=== PATIENT | female | born 1940 | race Caucasian/White ===

== ENCOUNTER 2022-08-24 16:52 | Inpatient (IN) | payer MEDICARE, OTHER ==
[~2022-08-24] VITALS: Ht 162.6 cm; Wt 69.9 kg
[2022-08-24] MEDS ORDERED: DEXTROSE 50%-WATER 50 ML DISP.SYRIN ONE (17:00)
--- NOTE | 2022-08-24 17:00 | NUR ---
BIB HIV PREVENTION SPECIALIST FROM HOME. LOW BLD SUGAR AND FEVER. INITIAL BLD SUGAR BY PARAMEDICS 40. GAVE IM GLUCAGON. REPEAT ACCUCHECK AT ADMISSION IS 48. PT PUT ON MONITOR AND PULSE, DID RECTAL TEMP 100.1F, PUT ON GOWN. NURSING CARE DONE MADE MD AWAR OF THE BLD SUGAR. PT AWAKE ORIENTED WITH ON O2 AT 4L. STRETCHER BORNE AWAITING FOR MD ORDERS
--- NOTE | 2022-08-24 17:15 | NUR ---
IV INSERTED, BLD EXTRACTED AND SENT TO LAB
[2022-08-24] MEDS ORDERED: VANCOMYCIN 1 GM in IV D5W 250 ML IV ONE (17:30)
[2022-08-24] MEDS ORDERED: DEXTROSE 50%-WATER 50 ML DISP.SYRIN IVP ONE (17:30)
[2022-08-24] MEDS ORDERED: CEFEPIME 1 GM in IV D5W 50 ML IV ONE (17:30)
[2022-08-24] MEDS ORDERED: IV NS 0.9% 1,000 ML BAG IV ONE (17:30)
[2022-08-24 17:36] LABS: BASOPHILS % (AUTO) 0.2 % (0.0-2.0); EOSINOPHILS % (AUTO) 0.3 % (0.0-6.0); HEMATOCRIT 29 % (33-45); HEMOGLOBIN 9.3 g/dL (11.5-14.8); LYMPHOCYTES # (AUTO) 0.7 K/uL (0.8-4.8); LYMPHOCYTES % (AUTO) 9.9 % (20.0-44.0); MEAN CORPUSCULAR HGB CONC 33 g/dl (31.0-36.0); MEAN CORPUSCULAR VOLUME 84 fL (82-100); MONOCYTES # (AUTO) 0.4 K/uL (0.1-1.30); MONOCYTES % (AUTO) 6.2 % (2.0-12.0); NEUTROPHILS # (AUTO) 5.5 K/uL (1.8-8.9); NEUTROPHILS % (AUTO) 83.4 % (43.0-81.0); PLATELET COUNT (AUTO) 137 K/uL (150-450); RED BLOOD CELL COUNT(AUTO) 3.42 MIL/uL (4.0-5.2); WHITE BLOOD COUNT (AUTO) 6.6 K/uL (4.3-11.0)
--- NOTE | 2022-08-24 17:40 | NUR ---
URINE SAMPLE SENT TO LAB
[2022-08-24 17:46] LABS: CALCIUM, SERUM 8.6 mg/dL (8.5-10.1); CARBON DIOXIDE 23 mmol/L (21-32); CHLORIDE 103 mmol/L (98-107); CREATININE 2.5 mg/dL (0.6-1.3); GLUCOSE 53 mg/dL (74-106); POTASSIUM 4.4 mmol/L (3.5-5.1); SODIUM SERUM 138 mmol/L (136-145); UREA NITROGEN, BLOOD 47 mg/dL (7-18)
--- NOTE | 2022-08-24 17:55 | NUR ---
RADHA Wright MD MADE AWARE
[2022-08-24 17:59] LABS: ALANINE AMINOTRANSFERASE 19 U/L (12-78); ALBUMIN 3.3 g/dL (3.4-5.0); ALKALINE PHOSPHATASE 141 U/L (46-116); ASPARTATE AMINOTRANSFERASE 37 U/L (15-37); BILIRUBIN,DIRECT 0.3 mg/dL (0.0-0.2); BILIRUBIN,TOTAL 0.5 mg/dL (0.2-1.0); TOTAL PROTEIN, SERUM 8.2 g/dL (6.4-8.2)
[2022-08-24] MEDS ORDERED: IPRATROPIUM NEB FS 0.5 MG/2.5 ML AMPUL.NEB NEB ONE (18:00)
[2022-08-24] MEDS ORDERED: ACETAMINOPHEN ES 500 MG TABLET PO ONE (18:00)
[2022-08-24] MEDS ORDERED: ALBUTEROL FS 2.5 MG/3 ML VIAL.NEB NEB ONE (18:00)
[2022-08-24] MEDS ORDERED: SACU1TAB PO (18:25)
[2022-08-24] MEDS ORDERED: MELA3CAP2 PO (18:25)
[2022-08-24] MEDS ORDERED: POLY17PO4 PO (18:25)
[2022-08-24] MEDS ORDERED: HYDR100T27 PO (18:25)
[2022-08-24] MEDS ORDERED: LEVO150T8 PO (18:25)
[2022-08-24] MEDS ORDERED: FERR325T23 PO (18:25)
[2022-08-24] MEDS ORDERED: FLUT16SP16 (18:25)
[2022-08-24] MEDS ORDERED: NIFE-34 PO (18:25)
[2022-08-24] MEDS ORDERED: BENZ-13 PO (18:25)
[2022-08-24] MEDS ORDERED: IPRA3AMP23 IH (18:25)
[2022-08-24] MEDS ORDERED: FOLI1CAP7 PO (18:25)
[2022-08-24] MEDS ORDERED: PANT40TA2 PO (18:25)
[2022-08-24] MEDS ORDERED: CLON0.3P TD (18:25)
[2022-08-24] MEDS ORDERED: EPOE3000 SQ (18:25)
[2022-08-24] MEDS ORDERED: ATOR10TA PO (18:25)
[2022-08-24] MEDS ORDERED: ASPI-1169 PO (18:25)
[2022-08-24] MEDS ORDERED: MORPHINE SULFATE INJ 2 MG/ML DISP.SYRIN IV ONE (18:30)
--- NOTE | 2022-08-24 18:39 | NUR ---
MOVE SHEET SUBMITTED.
[2022-08-24] MEDS ORDERED: MORPHINE SULFATE INJ 4 MG/ML DISP.SYRIN ONE (18:40)
--- NOTE | 2022-08-24 19:21 | NUR ---
SWAB FOR COVID19 AND RAPID INFLUENZA SENT TO LAB
[2022-08-24 19:34] LABS: BILIRUBIN,URINE NEGATIVE (NEGATIVE); COLOR,URINE YELLOW (YELLOW); LEUKOCYTE ESTERASE ,URINE NEGATIVE (NEGATIVE); NITRITE, URINE NEGATIVE (NEGATIVE); PH,URINE 5.5 (5.0-8.0); PROTEIN,URINE 1+ mg/dl (NEGATIVE); UGLUCOSE NEGATIVE (NEGATIVE); UROBILINOGEN,URINE 0.2 EU/dL (0.2)
--- NOTE | 2022-08-24 21:10 | NUR ---
RECHECKED TEMP. 101.4 PO ICE COLD PACK APPLIED TO BOTH ARMPIT.
--- NOTE | 2022-08-24 21:25 | NUR ---
REPORT GIVEN TO ASHLYN VIRAMONTES ROOM 328-2 FOR FLO
[2022-08-24] MEDS ORDERED: ONDANSETRON HCL/PF 4 MG/2 ML VIAL IVP PRN (21:30)
[2022-08-24] MEDS ORDERED: DEXTROSE 50%-WATER 50 ML DISP.SYRIN IV PRN (21:30)
[2022-08-24] MEDS ORDERED: ZOLPIDEM TARTRATE 5 MG TABLET PO PRN (21:30)
[2022-08-24] MEDS ORDERED: BENZONATATE 100 MG CAPSULE PO PRN (21:30)
[2022-08-24] MEDS ORDERED: IPRATROPIUM NEB FS 0.5 MG/2.5 ML AMPUL.NEB NEB PRN (21:30)
[2022-08-24] MEDS ORDERED: Z GUARD REMEDY 4 OZ OINT TP PRN (21:30)
[2022-08-24] MEDS ORDERED: MAG HYDROX/AL HYDROX/SIMETH 30 ML UDC PO PRN (21:30)
[2022-08-24] MEDS ORDERED: MAGNESIUM HYDROXIDE 30 ML UDC PO PRN (21:30)
[2022-08-24] MEDS ORDERED: LEVALBUTEROL HCL NEB 1.25 MG/0.5 ML VIAL.NEB NEB PRN (21:30)
--- NOTE | 2022-08-24 21:35 | NUR ---
SPLICER MACHINE OPERATOR ADMITTING NOTES RECEIVED PATIENT AWAKE A/OX3. ANGOLAN SPEAKING BUT UNDERSTAND WORDS IN BARBADIAN. PATIENT ON NASAL CANULA 2LPM. NO SOB, BREATHING EVENLY AND NON LABORED. NO IN ANY DISTRESS NOTED. IV ACCESS ON LEFT ARM #20 SALINE LOCK NOTED TO BE FLUSHING WELL AND INTACT. PATIENT DENIES ANY PAIN AT THIS MOMENT. PATIENT IS FEBRILE WITH TEMP OF 101.2. COOLING MEASURE IS DONE. MEDICATION IS GIVEN ORDERED. PATIENT ON TELE MONITOR READING OF SINUS RHYTHM 93BPM. PERFORMED SKIN ASSESSMENT AND BODY CHECK; SKIN NOTED TO BE INTACT NO REDNESS OR SKIN LESIONS NOTED. NO PRESENCE OF EDEMA. PATIENT IS ORIENTED TO THE ROOM AND HOW TO USE THE CALL LIGHT WHEN HELP IS NEEDED. ALL BELONGINGS ARE ACCOUNTED FOR. SAFETY MEASURE IN PLACED; BED LOCKED AND IN LOWEST POSITION, SIDE RAILS UP X2, HOB ELEVATED, CALL LIGHT AND BEDSIDE TABLE WITHIN PATIENT REACH.
[2022-08-24 21:40] LABS: BACTERIA,URINE None seen /HPF (None Seen); RBC,URINE 0-2 /HPF (0-2); URINE AMORPHOUS URATE Moderate /HPF (None Seen); WBC,URINE 0-2 /HPF (0-3)
[2022-08-24] MEDS ORDERED: MELATONIN 3 MG TABLET PO SCH (22:00)
[2022-08-24 22:30] VITALS: BP 157/66
[2022-08-24] MEDS: methylPREDNISolone SOD SUCC 125 MG/2ML VIAL IV SCH (22:54)
[2022-08-24] MEDS: ATORVASTATIN 10 MG TABLET PO SCH (22:54)
[2022-08-24] MEDS: BLOOD SUGAR DIAGNOSTIC 1 EACH STRIP IN SCH (23:18)
--- NOTE | 2022-08-24 23:18 | NUR ---
RN NOTES CHECKED PATIENT BLOOD SUGAR RESULT IS 34. CHARGE NURSE IS INFORMED. D5 DRIP IS GIVEN. WILL CONTINUE TO MONITOR.
[2022-08-25] VITALS (9 sets, daily range): BP systolic 121–171; BP diastolic 49–67
[2022-08-25] MEDS ORDERED: Medication Not On Formulary EA (Ipratropium/Albuterol Sulfate (Duoneb 2.5-0.5 Mg/3 Ml So IH SCH
--- NOTE | 2022-08-25 00:17 | NUR ---
RN NOTES PATIENT IS FEBRILE 101.1 COOLING MEASURE IS DONE. TYLENOL IS GIVEN ORDERED. WILL CONTINUE TO MONITOR.
--- NOTE | 2022-08-25 00:20 | NUR ---
RN NOTES TROP RESULT FROM [address] MARISCAL IS INFORMED. NO NEW ORDER GIVEN.
--- NOTE | 2022-08-25 00:26 | NUR ---
RN NOTES REASSESSED PATIENT. BLOOD SUGAR IS 93. GIVEN ONE ORANGE JUICE TO HELP ELEVATE BLOOD SUGAR.
--- NOTE | 2022-08-25 00:40 | NUR ---
RN NOTE REASSESSED PATIENT. FEVER RESOLVED. TEMP. 98.2
[2022-08-25] MEDS: ALBUTEROL FS 2.5 MG/0.5 ML VIAL.NEB NEB SCH ×5 (01:25→19:54)
[2022-08-25] MEDS: IPRATROPIUM NEB FS 0.5 MG/2.5 ML AMPUL.NEB IH SCH ×5 (01:25→19:54)
[2022-08-25] MEDS: methylPREDNISolone SOD SUCC 125 MG/2ML VIAL IV SCH ×3 (04:44→20:18)
[2022-08-25 06:26] LABS: HEMATOCRIT 25 % (33-45); HEMOGLOBIN 7.9 g/dL (11.5-14.8); LYMPHOCYTES # (AUTO) 0.2 K/uL (0.8-4.8); LYMPHOCYTES % (AUTO) 4.1 % (20.0-44.0); MEAN CORPUSCULAR HGB CONC 32 g/dl (31.0-36.0); MEAN CORPUSCULAR VOLUME 84 fL (82-100); MONOCYTES # (AUTO) 0.1 K/uL (0.1-1.30); MONOCYTES % (AUTO) 2.3 % (2.0-12.0); NEUTROPHILS # (AUTO) 4.7 K/uL (1.8-8.9); NEUTROPHILS % (AUTO) 93.6 % (43.0-81.0); PLATELET COUNT (AUTO) 121 K/uL (150-450); RED BLOOD CELL COUNT(AUTO) 2.94 MIL/uL (4.0-5.2)
--- NOTE | 2022-08-25 06:35 | NUR ---
BURRER HAND CLOSING NOTES PATIENT IN BED AWAKE A/OX4. AUSTRIAN SPEAKING BUT UNDERSTAND WORDS IN [place]VI[place]. ABLE TO MAKE NEEDS KNOWN. PATIENT ON NASAL CANULA 2LPM. NO SOB, BREATHING EVENLY AND NON LABORED. NO IN ANY DISTRESS NOTED. IV ACCESS ON LEFT ARM #20 SALINE LOCK NOTED TO BE FLUSHING WELL AND INTACT. PATIENT DENIES ANY PAIN AT THIS MOMENT. PATIENT ON TELE MONITOR READING OF SINUS RHYTHM WITH FIRST DEGREE AVB. LAB CALLED FOR TROPONIN THREAD FROM [id number] DR INDUSTRIAL HYGIENIST MADE AWARE, NOT NEW ORDERS GIVEN. SAFETY MEASURE IN PLACED; BED LOCKED AND IN LOWEST POSITION, SIDE RAILS UP X2, HOB ELEVATED, CALL LIGHT AND BEDSIDE TABLE WITHIN PATIENT REACH. WILL ENDORSE TO NEXT SHIFT NURSE FOR CONTINUITY OF CARE.
[2022-08-25 07:24] LABS: CARBON DIOXIDE 19 mmol/L (21-32); CHLORIDE 106 mmol/L (98-107); GLUCOSE 234 mg/dL (74-106); POTASSIUM 5.2 mmol/L (3.5-5.1); SODIUM SERUM 139 mmol/L (136-145); UREA NITROGEN, BLOOD 41 mg/dL (7-18)
[2022-08-25 07:25] LABS: ALANINE AMINOTRANSFERASE 18 U/L (12-78); ALBUMIN 2.6 g/dL (3.4-5.0); ALKALINE PHOSPHATASE 115 U/L (46-116); ASPARTATE AMINOTRANSFERASE 34 U/L (15-37); BILIRUBIN,TOTAL 0.5 mg/dL (0.2-1.0); CREATININE 1.9 mg/dL (0.6-1.3); MAGNESIUM 2.5 mg/dL (1.8-2.4); PHOSPHORUS 4.8 mg/dL (2.5-4.9); TOTAL PROTEIN, SERUM 6.6 g/dL (6.4-8.2)
[2022-08-25] MEDS: BLOOD SUGAR DIAGNOSTIC 1 EACH STRIP IN SCH ×4 (07:28→21:49)
[2022-08-25] MEDS: INSULIN REGULAR, HUMAN 100 UNIT/ML 3 ML VIAL SQ PRN ×4 (07:31→22:02)
--- NOTE | 2022-08-25 07:36 | NUR ---
RN NOTES BLOOD SUGAR CHECKED 262. 6 UNITS OF INSULIN GIVEN.
[2022-08-25] MEDS: LEVOTHYROXINE SODIUM 75 MCG TABLET PO SCH (07:43)
[2022-08-25] MEDS: PANTOPRAZOLE 40 MG TABLET.DR PO SCH (07:43)
--- NOTE | 2022-08-25 07:46 | NUR ---
CANDY PACKER OPENING NOTES RECEIVED PATIENT AWAKE IN BED A/OX4. HAITIAN SPEAKING BUT UNDERSTAND WORDS IN [place]. ABLE TO MAKE NEEDS KNOWN. PATIENT ON NASAL CANULA 2LPM. NO SOB, BREATHING EVENLY AND NON LABORED. NO SIGNS OF ANY DISTRESS NOTED. IV ACCESS ON LEFT AC #20 SALINE LOCK NOTED, FLUSHING WELL AND INTACT. PATIENT DENIES ANY PAIN AT THIS MOMENT. PATIENT ON TELE MONITOR READING OF SINUS RHYTHM WITH FIRST DEGREE AVB. SAFETY MEASURE IN PLACED; BED LOCKED AND IN LOWEST POSITION, SIDE RAILS UP X2, HOB ELEVATED, CALL LIGHT AND BEDSIDE TABLE WITHIN PATIENT REACH. WILL CONTINUE TO MONITOR PATIENT.
[2022-08-25] MEDS: FERROUS SULFATE (325 MG) 325 MG/TAB TABLET PO SCH (08:48)
[2022-08-25] MEDS: POLYETHYLENE GLYCOL 3350 17 GM POWD.PACK PO SCH (08:48)
[2022-08-25] MEDS: ASPIRIN 81 MG TAB.CHEW PO SCH (08:48)
[2022-08-25] MEDS: VIT B CMPLX 3/FA/VIT C/BIOTIN 1 TAB TABLET PO SCH (08:48)
[2022-08-25] MEDS: FLUTICASONE PROPIONATE 16 GM BOTTLE NS SCH (08:53)
[2022-08-25] MEDS: SACUBITRIL/VALSARTAN 1 EACH TABLET PO SCH ×2 (08:54→17:00)
[2022-08-25] MEDS: NIFEDIPINE XL 60 MG TAB.ER.24 PO SCH (08:55)
[2022-08-25] MEDS ORDERED: SODIUM POLYSTYRENE SULF. PWD 15 GM UDC PO ONE (10:00)
[2022-08-25] MEDS ORDERED: SODIUM POLYSTYRENE SULFONATE 15 G/60 ML BOTTLE PO ONE (11:00)
--- NOTE | 2022-08-25 11:53 | NUR ---
RN NOTES PT WITH HIGH LEVEL POTASSIUM 5.2 THIS MORNING, ADMINISTERED KAYEXALATE 15GMS PO ORDERED.
--- NOTE | 2022-08-25 12:25 | NUR ---
RN NOTES PATIENT BLOOD SUGAR WAS 427 AND GAVE 10 UNITS OF INSULIN. RECHECKED BLOOD SUGAR AT 1146 AND IT'S 436. INFORMED DR. OGDEN AND HE SAID TO CONTINUE USE OF SLIDING SCALE.
[2022-08-25] MEDS: CEFEPIME 1 GM in IV D5W 50 ML IV SCH (17:13)
[2022-08-25] MEDS: INSULIN GLARGINE, 100 UNIT/ML CARTRIDGE SQ SCH ×2 (18:06→21:56)
--- NOTE | 2022-08-25 18:10 | NUR ---
RN NOTES PATIENT WITH ACCU-CHECK OF 429 MG/DL, 10 UNITS OF REGULAR INSULIN GIVEN ORDERED. RECHECKED @ 0534 AND PATIENT HAS AN ACCU-CHECK OF 443 MG/DL. NOTIFIED DR. OGDEN WITH ORDER TO ADMINISTER LANTUS 5 UNITS NOW AND DAILY AT . ORDER CARRIED OUT.
--- NOTE | 2022-08-25 18:33 | NUR ---
ASSISTANT CUSTOMER SERVICE MANAGER CLOSING PATIENT IN BED AWAKE AND WATCHING TV, A/OX4. AMERICAN SPEAKING BUT UNDERSTAND WORDS IN [place]EL[place]. ABLE TO MAKE NEEDS KNOWN. PATIENT ON NASAL CANULA 2LPM. NO SOB, BREATHING EVENLY AND NON LABORED. NO ANY SIGNS OF DISTRESS. IV ACCESS ON LEFT AC #20 SALINE LOCK, FLUSHING WELL, PATENT AND INTACT. PATIENT DENIES ANY PAIN AT THIS MOMENT. PATIENT ON TELE MONITOR READING OF SINUS RHYTHM WITH FIRST DEGREE AVB, HR 88. SAFETY MEASURE IN PLACED; BED LOCKED AND IN LOWEST POSITION, SIDE RAILS UP X2, HOB ELEVATED, CALL LIGHT AND BEDSIDE TABLE WITHIN PATIENT REACH. WILL ENDORSE TO THE INTELLIGENCE APPLICATIONS NURSE FOR CONTINUITY OF CARE.
--- NOTE | 2022-08-25 19:00 | NUR ---
RN OPENING NOTE RECEIVED PT. ASLEEP IN BED. PT IS A/OX4, ITALIAN SPEAKING BUT CAN SPEAK AND UNDERSTAND SIMPLE QATARI. PT IS IN 2LPM O2 VIA NASAL CANNULA, TOLERATING WELL, BREATHING AND UNLABORED @ THIS TIME. PT IV PRESENT ON LEFT AC @20G RUNNING NS @ 5MLS/HR, PATENT, INTACT AND FLUSHES WELL W/ NO S&SX OF INFILTRATION @ SITE NOTED. PT CAN INDEPENDENTLY WALK TO THE BATHROOM WITH ASSISTANCE. SAFETY MEASURES IS IN PLACE. BED PLACED AT ITS LOWEST AND LOCKED POSITION. SIDE RAILS UP X 2. BEDSIDE TABLE AND CALL LIGHT IS EASY REACH. BED ALARM IS ON. WILL CONTINUE TO MONITOR PT ACCORDINGLY.
[2022-08-25] MEDS: ATORVASTATIN 10 MG TABLET PO SCH (21:38)
[2022-08-26] MEDS: IPRATROPIUM NEB FS 0.5 MG/2.5 ML AMPUL.NEB IH SCH ×4 (01:47→20:22)
[2022-08-26] MEDS: ALBUTEROL FS 2.5 MG/0.5 ML VIAL.NEB NEB SCH ×4 (01:47→20:22)
[2022-08-26] MEDS: methylPREDNISolone SOD SUCC 125 MG/2ML VIAL IV SCH (04:15)
[2022-08-26 06:14] LABS: BILIRUBIN,URINE NEGATIVE (NEGATIVE); COLOR,URINE YELLOW (YELLOW); LEUKOCYTE ESTERASE ,URINE NEGATIVE (NEGATIVE); NITRITE, URINE NEGATIVE (NEGATIVE); PROTEIN,URINE 2+ mg/dl (NEGATIVE); UGLUCOSE 2+ mg/dL (NEGATIVE); UROBILINOGEN,URINE 0.2 EU/dL (0.2)
[2022-08-26] MEDS: INSULIN REGULAR, HUMAN 100 UNIT/ML 3 ML VIAL SQ PRN ×4 (06:21→22:24)
[2022-08-26] MEDS: BLOOD SUGAR DIAGNOSTIC 1 EACH STRIP IN SCH ×4 (06:21→22:27)
[2022-08-26 06:24] LABS: HEMATOCRIT 26 % (33-45); HEMOGLOBIN 8.5 g/dL (11.5-14.8); LYMPHOCYTES # (AUTO) 0.1 K/uL (0.8-4.8); LYMPHOCYTES % (AUTO) 1.3 % (20.0-44.0); MEAN CORPUSCULAR HGB CONC 33 g/dl (31.0-36.0); MEAN CORPUSCULAR VOLUME 83 fL (82-100); MONOCYTES # (AUTO) 0.3 K/uL (0.1-1.30); NEUTROPHILS # (AUTO) 7.2 K/uL (1.8-8.9); NEUTROPHILS % (AUTO) 94.7 % (43.0-81.0); PLATELET COUNT (AUTO) 149 K/uL (150-450); RED BLOOD CELL COUNT(AUTO) 3.14 MIL/uL (4.0-5.2); WHITE BLOOD COUNT (AUTO) 7.6 K/uL (4.3-11.0)
[2022-08-26 06:33] LABS: RBC,URINE 0-2 /HPF (0-2); WBC,URINE 0-2 /HPF (0-3)
[2022-08-26 06:34] LABS: BACTERIA,URINE Rare /HPF (None Seen); SQUAMOUS EPITHELIAL CELL,UR Few /HPF (None Seen)
--- NOTE | 2022-08-26 06:38 | NUR ---
RN CLOSING NOTE PT IS AWAKE AND RESTING COMFORTABLY IN BED. PT IS A/O X 4, RESPONSIVE AND FOLLOWS VERBAL COMMAND. PT IS IN 2LPM O2 VIA NASALA CANNULA, W/ NO S&SX OF RESPIRATORY DISTRESS NOTED @ THIS TIME. PT IV PRESENT ON LEFT AC #20G SALINE LOCK, INTACT AND FLUSHES WELL WITH NO S &SX OF INFILTRATION. PT IS ON TELE MONITOR W/ CURRENT READING OF SINUS TACHYCARDIA HR 121 BPM. PT INDEPENDENTLY WALKS IN THE BATHROOM W/ STANDBY ASSIST. ADMINISTERED MEDICATION ACCORDINGLY PER MD'S ORDER. VITAL SIGNS TAKEN AND DOCUMENTED. ALL NEEDS ATTENDED. SAFETY MEASURES IS IN PLACE. BED AT ITS LOWEST AND LOCKED POSITION. SIDE RAILS UP X 2. BEDSIDE TABLE AND CALL LIGHT IS EASY REACH. BED ALARM IS ON. WILL ENDORSE TO THE NEXT SHIFT FOR CONTINUITY OF CARE.
[2022-08-26 06:45] LABS: CALCIUM, SERUM 8.4 mg/dL (8.5-10.1); CARBON DIOXIDE 22 mmol/L (21-32); CHLORIDE 105 mmol/L (98-107); CREATININE 2.1 mg/dL (0.6-1.3); GLUCOSE 324 mg/dL (74-106); MAGNESIUM 2.6 mg/dL (1.8-2.4); PHOSPHORUS 4.1 mg/dL (2.5-4.9); SODIUM SERUM 141 mmol/L (136-145); UREA NITROGEN, BLOOD 60 mg/dL (7-18)
[2022-08-26] MEDS: LEVOTHYROXINE SODIUM 75 MCG TABLET PO SCH (07:46)
[2022-08-26] MEDS: PANTOPRAZOLE 40 MG TABLET.DR PO SCH (07:46)
--- NOTE | 2022-08-26 07:48 | NUR ---
BEAMING INSPECTOR OPENING NOTES RECEIVED PATIENT AWAKE IN BED, A/OX4. NEPALI SPEAKING BUT UNDERSTAND WORDS IN [place]. ABLE TO MAKE NEEDS KNOWN. PATIENT ON NASAL CANULA 2LPM. NO SOB, BREATHING EVENLY AND NON LABORED. NO SIGNS OF ANY DISTRESS NOTED. IV ACCESS ON LEFT AC #20 SALINE LOCK NOTED, FLUSHING WELL AND INTACT. NO S & SX OF INFILTRATION. PATIENT DENIES ANY PAIN AT THIS MOMENT. PATIENT ON TELE MONITOR READING OF SINUS RHYTHM HR:93. SAFETY MEASURE IN PLACED; BED LOCKED AND IN LOWEST POSITION, SIDE RAILS UP X2, HOB ELEVATED, CALL LIGHT AND BEDSIDE TABLE WITHIN PATIENT REACH. WILL CONTINUE TO MONITOR PATIENT.
[2022-08-26 08:00] VITALS: BP 148/67
[2022-08-26] MEDS: FERROUS SULFATE (325 MG) 325 MG/TAB TABLET PO SCH (08:18)
[2022-08-26] MEDS: VIT B CMPLX 3/FA/VIT C/BIOTIN 1 TAB TABLET PO SCH (08:18)
[2022-08-26] MEDS: POLYETHYLENE GLYCOL 3350 17 GM POWD.PACK PO SCH (08:18)
[2022-08-26] MEDS: ASPIRIN 81 MG TAB.CHEW PO SCH (08:18)
[2022-08-26] MEDS: SACUBITRIL/VALSARTAN 1 EACH TABLET PO SCH ×2 (08:22→16:16)
[2022-08-26] MEDS: FLUTICASONE PROPIONATE 16 GM BOTTLE NS SCH (08:24)
[2022-08-26] MEDS: NIFEDIPINE XL 60 MG TAB.ER.24 PO SCH (08:24)
[2022-08-26] MEDS ORDERED: INSULIN GLARGINE, 100 UNIT/ML CARTRIDGE SQ SCH (08:30)
[2022-08-26 12:00] VITALS: BP 147/72
[2022-08-26 16:00] VITALS: BP 158/68
--- NOTE | 2022-08-26 16:58 | NUR ---
RECEIVED PATIENT ON 2LNC SATURATIONS AT 98%. ORDERED HHN TXS TAMI WELL WITH NO ADVERSE REACTION NOTED. NO SOB NOTED.
[2022-08-26] MEDS: ACETAMINOPHEN 325 MG TABLET PO PRN (17:31)
--- NOTE | 2022-08-26 17:35 | NUR ---
RN NOTES PATIENT COMPLAINED OF LOWER BACK PAIN AND ASKED FOR SOME MEDICINE. SHE RATE THE PAIN 3 OUT OF 10. TYLENOL 650MG GIVEN.
[2022-08-26] MEDS: CEFEPIME 1 GM in IV D5W 50 ML IV SCH (18:21)
--- NOTE | 2022-08-26 18:39 | NUR ---
COTTON FARMER CLOSING NOTES PATIENT IN BED AWAKE AND WATCHING TV, A/OX4. GREENLANDIC SPEAKING BUT UNDERSTAND WORDS IN [place]. ABLE TO MAKE NEEDS KNOWN. PATIENT ON NASAL CANULA 2LPM. BREATHING EVENLY AND NON LABORED. NO ANY SIGNS OF DISTRESS. IV ACCESS ON LEFT AC #20 SALINE LOCK, FLUSHING WELL, PATENT AND INTACT. PATIENT DENIES ANY PAIN AT THIS MOMENT. PATIENT ON TELE MONITOR READING OF SINUS RHYTHM, HR 88. SAFETY MEASURE IN PLACED; BED LOCKED AND IN LOWEST POSITION, SIDE RAILS UP X2, HOB ELEVATED, CALL LIGHT AND BEDSIDE TABLE WITHIN PATIENT REACH. WILL ENDORSE TO THE MANAGER DIVERSITY NURSE FOR CONTINUITY OF CARE.
--- NOTE | 2022-08-26 19:48 | NUR ---
MENTAL HEALTH UNIT LEAD PSYCHOLOGIST OPENING NOTES: RECEIVED PATIENT AWAEK IN BED, BED IN LOW POSITION CALL LIGHTS WITHIN REACH, NO COMPLAIN OF PAIN AND DISCOMFORT A THIS TIME, ON ROOM AIR SATURATING WELL, PATIENT IS A/O X4 OCCITAN SPEAKING ABLE TO MAKE NEEDS KNOWN, ON TELE MONITOR- [id number] , PATIENT IS AMBULATORY WITH ASSIST, IV LINE AT LAC#20 SL, PATIENT KEPT CLEAN AND DRY ALL NEEDS MET WILL CONTINUE TO MONITOR.
[2022-08-26 20:00] VITALS: BP 104/51
[2022-08-26] MEDS: IV NS 0.9% 1,000 ML IV SCH (21:39)
[2022-08-26] MEDS: ATORVASTATIN 10 MG TABLET PO SCH (22:00)
[2022-08-27] VITALS: BP 141/65
[2022-08-27] MEDS: ALBUTEROL FS 2.5 MG/0.5 ML VIAL.NEB NEB SCH ×4 (02:27→20:05)
[2022-08-27] MEDS: IPRATROPIUM NEB FS 0.5 MG/2.5 ML AMPUL.NEB IH SCH ×4 (02:27→20:06)
[2022-08-27 04:00] VITALS: BP 153/65
--- NOTE | 2022-08-27 06:50 | NUR ---
PRODUCTION TEAM ADVISOR CLOSING NOTES: PATIENT SLEEP IN BED COMFORTABLY, BED IN LOW POSITION CALL LIGHTS WITHIN REACH, NO COMPLAIN OF PAIN AND DISCOMFORT AT THIS TIME, ON O2 INHALATION AT 2LPM SATURATING WELL, PATIENT IS A/O X4 ABLE TO MAKE NEEDS KNOWN, AMBULATORY WITH ASSISTANCE, ON TELE [id number] I LINE AT LAC#20 WITH ONGOING 0.9NSS@50ML/HR INFUSING WELL, PATIENT KEPT CLEAN AND DRY ALL NEEDS MET ENDORSE TO INCOMING SHIFT
[2022-08-27] MEDS: INSULIN REGULAR, HUMAN 100 UNIT/ML 3 ML VIAL SQ PRN ×4 (06:56→21:44)
[2022-08-27] MEDS: BLOOD SUGAR DIAGNOSTIC 1 EACH STRIP IN SCH ×4 (06:56→21:32)
--- NOTE | 2022-08-27 07:00 | NUR ---
FUR FEEDER OPENING NOTES: RECEIVED PT IN BED AWAKE, A/OX4 TAIWANESE SPEAKING AND ABLE TO MAKE NEEDS KNOWN, NO SOB OR CARDIAC DISTRESS NOTED. ON O2 INHALATION AT 2LPM VIA NC AND TOLERATING WELL,ON TELE MONITOR WITH CURRENT READING OF SINUS RHYTHM @ 94BPM.IV ACCESS ON LAC GAUGE 20 PATENT, INTACT AND INFUSING NS 1L @ 50ML/HR. SAFETY MEASURES MAINTAINED: BED LOCKED AND IN LOWEST POSITION. SIDE RAILS UP X 2. CALL LIGHT IN EASY REACH FOR HELP. WILL MONITOR PT ACCORDINGLY.
[2022-08-27] MEDS: PANTOPRAZOLE 40 MG TABLET.DR PO SCH (07:32)
[2022-08-27] MEDS: LEVOTHYROXINE SODIUM 75 MCG TABLET PO SCH (07:33)
[2022-08-27 08:00] VITALS: BP 155/70
[2022-08-27] MEDS: ASPIRIN 81 MG TAB.CHEW PO SCH (08:35)
[2022-08-27] MEDS: NIFEDIPINE XL 60 MG TAB.ER.24 PO SCH (08:35)
[2022-08-27] MEDS: POLYETHYLENE GLYCOL 3350 17 GM POWD.PACK PO SCH (08:35)
[2022-08-27] MEDS: FERROUS SULFATE (325 MG) 325 MG/TAB TABLET PO SCH (08:35)
[2022-08-27] MEDS: FLUTICASONE PROPIONATE 16 GM BOTTLE NS SCH (08:35)
[2022-08-27] MEDS: VIT B CMPLX 3/FA/VIT C/BIOTIN 1 TAB TABLET PO SCH (08:35)
[2022-08-27] MEDS: SACUBITRIL/VALSARTAN 1 EACH TABLET PO SCH ×2 (08:36→16:38)
[2022-08-27 09:12] LABS: CALCIUM, SERUM 8.4 mg/dL (8.5-10.1); CARBON DIOXIDE 24 mmol/L (21-32); CHLORIDE 109 mmol/L (98-107); CREATININE 2.1 mg/dL (0.6-1.3); GLUCOSE 225 mg/dL (74-106); SODIUM SERUM 142 mmol/L (136-145); UREA NITROGEN, BLOOD 54 mg/dL (7-18)
[2022-08-27 09:18] LABS: ALANINE AMINOTRANSFERASE 22 U/L (12-78); ALBUMIN 2.5 g/dL (3.4-5.0); ALKALINE PHOSPHATASE 103 U/L (46-116); ASPARTATE AMINOTRANSFERASE 33 U/L (15-37); BILIRUBIN,TOTAL 0.5 mg/dL (0.2-1.0); TOTAL PROTEIN, SERUM 7.1 g/dL (6.4-8.2)
[2022-08-27 12:00] VITALS: BP 139/60
[2022-08-27 16:00] VITALS: BP 129/62
[2022-08-27] MEDS: CEFEPIME 1 GM in IV D5W 50 ML IV SCH (17:05)
[2022-08-27] MEDS: IV NS 0.9% 1,000 ML IV SCH (17:05)
--- NOTE | 2022-08-27 18:51 | NUR ---
BAGGAGE PORTER HEAD CLOSING NOTES: PT IN BED AWAKE, A/OX4 CANADIAN SPEAKING AND ABLE TO MAKE NEEDS KNOWN, NO SOB OR CARDIAC DISTRESS NOTED. ON O2 INHALATION AT 2LPM VIA NC AND TOLERATING WELL,ON TELE MONITOR WITH CURRENT READING OF SINUS RHYTHM @ 93BPM.IV ACCESS ON LAC GAUGE 20 PATENT, INTACT AND INFUSING NS 1L @ 50ML/HR. SAFETY MEASURES MAINTAINED: BED LOCKED AND IN LOWEST POSITION. SIDE RAILS UP X 2. CALL LIGHT IN EASY REACH FOR HELP. WILL ENDORSE TO SOLAR PV INSTALLER RN FOR CONTINUITY OF CARE.
--- NOTE | 2022-08-27 19:30 | NUR ---
ROLL UP OPERATOR OPENING NOTE PATIENT AWAKE IN BED, ALERT/ORIENTED X 4, PRIMARILY CHILEAN SPEAKING BUT ABLE TO MAKE BASIC NEEDS KNOWN. PATIENT ON 2 LPM OF O2 VIA NASAL CANNULA, NO S/S OF DISTRESS OR SOB NOTED, BREATHING EVEN AND UNLABORED. PATIENT ON EXTERNAL SOFA BACK UPHOLSTERER READING SINUS RHYTHM, HR: 92. IV ACCESS ON LAC #20G INTACT AND INFUSING NS @ 50 ML/HR. SAFETY MEASURES IN PLACE: CALL LIGHT WITHIN REACH, SIDE RAILS UP X 2, BED LOCKED IN LOWEST POSITION, HOB ELEVATED, BED ALARM ON. WILL CONTINUE TO MONITOR PATIENT
--- NOTE | 2022-08-27 19:49 | NUR ---
WET MIXER NOTE PATIENT COUGHING AND REQUESTING COUGH MEDICINE, TESSALON PERLE 100 MG PO GIVEN ORDERED. WILL CONTINUE TO MONITOR
[2022-08-27 20:00] VITALS: BP 151/68
[2022-08-27] MEDS: ACETAMINOPHEN 325 MG TABLET PO PRN (21:32)
--- NOTE | 2022-08-27 21:35 | NUR ---
MONOLOGIST NOTE PATIENT C/O RIB PAIN FROM COUGHING, TYLENOL 650 MG PO GIVEN ORDERED, WILL CONTINUE TO MONITOR
[2022-08-27] MEDS ORDERED: ATORVASTATIN 10 MG TABLET PO SCH (22:00)
[2022-08-28] VITALS: BP 131/59
[2022-08-28] MEDS: ALBUTEROL FS 2.5 MG/0.5 ML VIAL.NEB NEB SCH ×2 (01:35→07:30)
[2022-08-28] MEDS: IPRATROPIUM NEB FS 0.5 MG/2.5 ML AMPUL.NEB IH SCH ×2 (01:35→07:30)
[2022-08-28 04:00] VITALS: BP 143/66
[2022-08-28] MEDS: BLOOD SUGAR DIAGNOSTIC 1 EACH STRIP IN SCH ×2 (06:49→11:27)
[2022-08-28] MEDS: INSULIN REGULAR, HUMAN 100 UNIT/ML 3 ML VIAL SQ PRN ×2 (06:51→11:30)
--- NOTE | 2022-08-28 07:06 | NUR ---
LEAD ATG DEVELOPER CLOSING NOTE PATIENT AWAKE IN BED, ALERT/ORIENTED X 4, PRIMARILY PERUVIAN SPEAKING BUT ABLE TO MAKE BASIC NEEDS KNOWN. PATIENT ON 1 LPM OF O2 VIA NASAL CANNULA, NO S/S OF DISTRESS OR SOB NOTED, BREATHING EVEN AND UNLABORED, SPO2 92-95%. PATIENT ON EXTERNAL REPAIR TABLE OPERATOR READING SINUS RHYTHM, HR: 97. IV ACCESS ON LAC #20G INTACT AND INFUSING NS @ 50 ML/HR. MEDICATIONS GIVEN ORDERED, PT NEEDS MET THROUGHOUT SHIFT, ASSISTED PATIENT TO BSC 4 TIMES THIS SHIFT, NO BM. SAFETY MEASURES IN PLACE: CALL LIGHT WITHIN REACH, SIDE RAILS UP X 2, BED LOCKED IN LOWEST POSITION, HOB ELEVATED, BED ALARM ON. ENDORSED TO DAYSHIFT RN FOR CONTINUITY OF CARE
--- NOTE | 2022-08-28 07:15 | NUR ---
WINDOW COVERING SALES CONSULTANT OPENING NOTE RECEIVED PATIENT AWAKE IN BED, A/O X 4, CITIZEN OF [place] SPEAKING WITH BASIC AFGHAN AND ABLE TO MAKE NEEDS KNOWN. PATIENT ON 1 LPM OF O2 VIA NASAL CANNULA, NO S/S OF DISTRESS OR SOB NOTED, BREATHING EVEN AND UNLABORED, SPO2 92-95%. PATIENT ON EXTERNAL UKRAINIAN FOLK ARTS INSTRUCTOR READING SINUS RHYTHM, HR: 98. IV ACCESS ON LAC #20G INTACT AND INFUSING NS @ 50 ML/HR. SAFETY MEASURES IN PLACE: CALL LIGHT WITHIN REACH, SIDE RAILS UP X 2, BED LOCKED IN LOWEST POSITION, HOB ELEVATED, BED ALARM ON. WILL CONTINUE TO MONITOR THE PATIENT FOR FLO
[2022-08-28 07:39] LABS: ALANINE AMINOTRANSFERASE 35 U/L (12-78); ALBUMIN 2.3 g/dL (3.4-5.0); ALKALINE PHOSPHATASE 99 U/L (46-116); ASPARTATE AMINOTRANSFERASE 38 U/L (15-37); BILIRUBIN,TOTAL 0.5 mg/dL (0.2-1.0); CALCIUM, SERUM 8.1 mg/dL (8.5-10.1); CARBON DIOXIDE 23 mmol/L (21-32); CHLORIDE 110 mmol/L (98-107); GLUCOSE 173 mg/dL (74-106); POTASSIUM 3.7 mmol/L (3.5-5.1); SODIUM SERUM 143 mmol/L (136-145); TOTAL PROTEIN, SERUM 6.9 g/dL (6.4-8.2); UREA NITROGEN, BLOOD 47 mg/dL (7-18)
[2022-08-28 08:00] VITALS: BP 154/64
[2022-08-28] MEDS: FLUTICASONE PROPIONATE 16 GM BOTTLE NS SCH (08:24)
[2022-08-28] MEDS: PANTOPRAZOLE 40 MG TABLET.DR PO SCH (08:24)
[2022-08-28] MEDS: FERROUS SULFATE (325 MG) 325 MG/TAB TABLET PO SCH (08:24)
[2022-08-28] MEDS: LEVOTHYROXINE SODIUM 75 MCG TABLET PO SCH (08:24)
[2022-08-28] MEDS: ASPIRIN 81 MG TAB.CHEW PO SCH (08:24)
[2022-08-28] MEDS: POLYETHYLENE GLYCOL 3350 17 GM POWD.PACK PO SCH (08:24)
[2022-08-28] MEDS: VIT B CMPLX 3/FA/VIT C/BIOTIN 1 TAB TABLET PO SCH (08:24)
[2022-08-28 09:20] VITALS: BP 154/64
[2022-08-28] MEDS: NIFEDIPINE XL 60 MG TAB.ER.24 PO SCH (09:20)
[2022-08-28] MEDS: SACUBITRIL/VALSARTAN 1 EACH TABLET PO SCH (09:20)
[2022-08-28] MEDS ORDERED: DOXY100C2 PO (09:21)
[2022-08-28] MEDS ORDERED: ATOR10TA PO (09:21)
--- NOTE | 2022-08-28 12:33 | NUR ---
Prior to discharge, Patient & family requested that two medications namely: Atorvastatin Calcium (Lipitor) 10 mg tab, 40 mg PO HS 30 days #30 tab & Doxycycline Hyclate 100 mg Capsule 1 cap PO BID #14 Cap, be routed and order picker at [facility] located at [address] [place] [address], tel# . The reason for the reroute is preferred pharmacy closed on Sundays. All remaining medications shall be picked up the next day. Request granted as approved by Charge nurse. informed.
--- NOTE | 2022-08-28 13:00 | NUR ---
DISCHARGED PATIENT TO HOME, PATIENT'S FAMILY ON BEDSIDE DURING THE DISCHARGE. PATIENT WAS A/O X 4, [place] SPEAKING WITH BASIC SLOVENIAN AND ABLE TO MAKE NEEDS KNOWN. PATIENT WAS ON RA WHEN DISCHARGED, NO S/S OF DISTRESS OR SOB NOTED, BREATHING EVEN AND UNLABORED, SPO2 94%. IV ACCESS REMOVED, TIP INTACT, NO SIGNS OF BLEEDING WAS NOTED. ALL BELONGINGS ACCOUNTED FOR, ALL FAMILY REQUESTS ADDRESSED. DISCHARGED INSTRUCTIONS DISCUSSED WITH THE PATIENT AND FAMILY BOTH VERBALLY AND IN WRITING. SAFETY PROTOCOL MAINTAINED. PATIENT LEFT THE UNIT AT 1230. CHARGE NURSE AWARE OF THE DISCHARGE.
[2022-08-28] MEDS ORDERED: ATORVASTATIN 40 MG TABLET PO SCH (22:00)
[2022-08-30] MEDS ORDERED: CLONIDINE HCL 0.3 MG/24H PTWK 1 EA PATCH TD SCH (21:30)
== END 2022-08-28 12:30 | disposition home or self-care (01) | DRG 871 ==
LOC: ER 16:55 → TELE 21:10
PROVIDERS: ADMIT Nurse Practitioner Acute Care; ATTEND Internal Medicine
DX: A41.9 Sepsis, unspecified organism (principal); I21.A1 Myocardial infarction type 2; J96.01 Acute respiratory failure with hypoxia; J15.6 Pneumonia due to other Gram-negative bacteria; N17.0 Acute kidney failure with tubular necrosis; J45.901 Unspecified asthma with (acute) exacerbation; I50.30 Unspecified diastolic (congestive) heart failure; E44.1 Mild protein-calorie malnutrition; Z20.822 Contact with and (suspected) exposure to COVID-19; J45.909 Unspecified asthma, uncomplicated; E11.649 Type 2 diabetes mellitus with hypoglycemia without coma; I11.0 Hypertensive heart disease with heart failure; M19.90 Unspecified osteoarthritis, unspecified site; E88.09 Other disorders of plasma-protein metabolism, not elsewhere classified; E78.5 Hyperlipidemia, unspecified; I70.0 Atherosclerosis of aorta; K74.60 Unspecified cirrhosis of liver; E87.5 Hyperkalemia; Z68.30 Body mass index [BMI] 30.0-30.9, adult
CPT/HCPCS: 36415; 71045-TC; 71250-TC; 76770-TC; 80048-TC; 80053-TC; 80076-TC; 81001; 82570-TC; 82962-TC; 83605-TC; 83735-TC; 83880; 84100-TC; 84300-TC; 84484-TC; 85025-TC; 85730-TC; 87040-TC; 87081-TC; 87086-TC; 93307-TC; 94799-TC; A4223; C9803; G0378; J0692; J1815; J2270; J2930; J3370; J7030; J7040; J7060

== ENCOUNTER 2022-09-23 14:08 | Inpatient (IN) | payer MEDICARE, OTHER ==
[~2022-09-23] VITALS: Ht 162.6 cm; Wt 69.9 kg
[~2022-09-23 14:08] MED LIST: ASPI-1169 PO; ATOR10TA PO; BENZ-13 PO; CLON0.3P TD; DOXY100C2 PO; FERR325T23 PO; FLUT16SP16; FOLI1CAP7 PO; HYDR100T27 PO; IPRA3AMP23 IH; LEVO150T8 PO; MELA3CAP2 PO; NIFE-34 PO; PANT40TA2 PO; POLY17PO4 PO; SACU1TAB PO
--- NOTE | 2022-09-23 14:23 | NUR ---
PT IN BED 12, BREATHING EVEN AND UNLABORED A/O X1 FRENCH SPEAKING. FEEL DOWN AND CAUGHT HERSELF WITH HER ARM LEADING TO CONNECTED TO BEDSIDE MONITOR. Hx: HTN, LDL, HYPERTHYROID, ANEMIA TAKES ASPIRIN 81MG ACCODING TO LADF.
[2022-09-23] MEDS ORDERED: ACETAMINOPHEN 325 MG TABLET PO ONE (14:30)
[2022-09-23] MEDS ORDERED: ACETAMINOPHEN ES 500 MG TABLET ONE (14:31)
[2022-09-23] MEDS ORDERED: KETOROLAC TROMETHAMINE 15 MG/ML VIAL ONE (15:27)
[2022-09-23] MEDS ORDERED: KETOROLAC TROMETHAMINE INJ 60 MG/2 ML VIAL IM ONE (15:30)
--- NOTE | 2022-09-23 15:58 | NUR ---
KEIRA AT BEDSIDE FOR BLOOD DRAW
--- NOTE | 2022-09-23 15:59 | NUR ---
COVID SWAB COLLECTED AND SENT TO LAB
--- NOTE | 2022-09-23 16:04 | NUR ---
PAGED EPIC ECD
--- NOTE | 2022-09-23 16:04 | NUR ---
PAGED ORTHO NURSE HEAD
--- NOTE | 2022-09-23 16:07 | NUR ---
SUBMITTED MOVE SHEET
[2022-09-23 16:14] LABS: BASOPHILS % (AUTO) 0.7 % (0.0-2.0); EOSINOPHILS % (AUTO) 2.2 % (0.0-6.0); HEMATOCRIT 25 % (33-45); LYMPHOCYTES # (AUTO) 0.6 K/uL (0.8-4.8); LYMPHOCYTES % (AUTO) 12.7 % (20.0-44.0); MEAN CORPUSCULAR HGB CONC 32 g/dl (31.0-36.0); MEAN CORPUSCULAR VOLUME 86 fL (82-100); MONOCYTES # (AUTO) 0.3 K/uL (0.1-1.30); MONOCYTES % (AUTO) 7.7 % (2.0-12.0); NEUTROPHILS # (AUTO) 3.5 K/uL (1.8-8.9); NEUTROPHILS % (AUTO) 76.7 % (43.0-81.0); PLATELET COUNT (AUTO) 100 K/uL (150-450); RED BLOOD CELL COUNT(AUTO) 2.92 MIL/uL (4.0-5.2); WHITE BLOOD COUNT (AUTO) 4.5 K/uL (4.3-11.0)
[2022-09-23 16:23] LABS: CALCIUM, SERUM 8.2 mg/dL (8.5-10.1); CARBON DIOXIDE 21 mmol/L (21-32); CHLORIDE 108 mmol/L (98-107); CREATININE 2.2 mg/dL (0.6-1.3); GLUCOSE 122 mg/dL (74-106); POTASSIUM 5.3 mmol/L (3.5-5.1); SODIUM SERUM 139 mmol/L (136-145); UREA NITROGEN, BLOOD 38 mg/dL (7-18)
--- NOTE | 2022-09-23 16:56 | NUR ---
ORTHO OVEN DUMPER SPEAKING WITH TOMAS ANN
[2022-09-23] MEDS ORDERED: ERGO500093 PO (17:01)
[2022-09-23] MEDS ORDERED: INSU100I4 SQ (17:01)
[2022-09-23] MEDS ORDERED: ROSU10TA29 PO (17:01)
[2022-09-23] MEDS ORDERED: SITA50TA PO (17:01)
[2022-09-23] MEDS ORDERED: GABA300C PO (17:01)
[2022-09-23 17:07] LABS: BAND % (MANUAL) 2 % (0.0-5.0); EOSINOPHILS % (MANUAL) 2 % (0-4); LYMPHOCYTES % (MANUAL) 10 % (16-48); MONOCYTES % (MANUAL) 5 % (0-11.0); NEUTROPHILS % (MANUAL) 81 (42-76)
--- NOTE | 2022-09-23 17:28 | NUR ---
bed 324-2
[2022-09-23] MEDS ORDERED: IV NS 0.9% 1,000 ML IV ONE (17:30)
[2022-09-23] MEDS ORDERED: HYDROCODONE/APAP 10/325MG TABLET PO PRN (17:30)
[2022-09-23] MEDS ORDERED: ONDANSETRON HCL/PF 4 MG/2 ML VIAL IVP PRN (17:30)
[2022-09-23] MEDS ORDERED: HYDROCODONE/APAP 5/325MG TABLET PO PRN (17:30)
[2022-09-23] MEDS ORDERED: Z GUARD REMEDY 4 OZ OINT TP PRN (17:30)
[2022-09-23] MEDS ORDERED: SODIUM POLYSTYRENE SULFONATE 15 G/60 ML BOTTLE PO ONE ×2 (17:30→20:00)
[2022-09-23] MEDS ORDERED: MAGNESIUM HYDROXIDE 30 ML UDC PO PRN (17:30)
[2022-09-23] MEDS ORDERED: DEXTROSE 50%-WATER 50 ML DISP.SYRIN IV PRN (17:30)
[2022-09-23] MEDS ORDERED: MAG HYDROX/AL HYDROX/SIMETH 30 ML UDC PO PRN (17:30)
--- NOTE | 2022-09-23 17:45 | NUR ---
HANDOFF REPORT GIVEN TO MINI VIRAMONTES FOR INPATIENT SERVICES.
[2022-09-23] MEDS: IV NS 0.9% 1,000 ML IV PRN (18:11)
--- NOTE | 2022-09-23 18:20 | NUR ---
RN NOTE- MPT ADMITTED TO [facility] FOR FX RT HUMERUS AND PELVIC FX. BEGIN ADMIT PROCESS. VS - BP- 145/62, HR- 71, RR- 22, T- 98.0, 02 SATS 97% RA. PT IN PAIN. WILL MEDICATE. IVF NS AT 75/HR INITIATED TO 18G LT HAND. SIDE RAILS UP, CALL LIGHT IN REACH, BED LOCKED. MONITOR ASSIST PRN. ICE BAG PROVIDED FOR RT HUMERUS FX/COMFORT.
[2022-09-23] MEDS: MORPHINE SULFATE INJ 2 MG/ML DISP.SYRIN IV PRN ×2 (18:28→23:26)
--- NOTE | 2022-09-23 18:28 | NUR ---
PT TRANSFERRED TO M/S. IN STABLE CONDITION. WEN VIRAMONTES AT BEDSIDE TO RECEIVE PT W/BELONGINGS.
--- NOTE | 2022-09-23 19:00 | NUR ---
RN ADMITTING NOTES ADMITTED A 82 YR/ OLD FEMALE UNDER THE SERVICE OF DR. PRUITT S/P GROUND LEVEL FALL.A/O X 4 LUXEMBOURGISH SPEAKING BUT ABLE TO UNDERSTAND NORWEGIAN, ON MODERATE HIGH MILADY REST POSITION. BREATHING EVENLY AND UNLABORED. WITH IV ACCESS AT LEFT HAND #20G WITH NS1L AT 75ML/HR INFUSING WELL. HISTORY TAKEN AND RECORDED, PHYSICAL EXAMINATION DONE, WITH FRACTURE AT RIGHT SIDE OF THE BODY. PATIENT AND RELATIVE ORIENTED TO THE UNIT POLICY, PATIENT HAS NO COVID 19 VACCINE. ON ROOM AIR SATURATING WELL. KEPT BED ON LOWER LOCKED POSITION, KEPT SIDE RAILS UP X 2 ALL THE TIME, KEPT CALL LIGHT WITHIN AT REACH, SAFETY PRECAUTIONS MAINTAIN, WILL CONTINUE TO MONITOR
--- NOTE | 2022-09-23 19:05 | NUR ---
RN NOTES WITH POTASSIUM OF 5.3, KAYEXELATE 30GMS GIVEN AND WELL TOLERATED BY THE PATIENT. WILL CONTINUE TO MONITOR.
--- NOTE | 2022-09-23 19:10 | NUR ---
RN NOTES PATIENT HAVE LOVENOX 30MG DUE BUT THE PLATELET IS 100, DR. HAYNES INFORMED WITH ORDER TO GIVE LOVENOX 30MG. WILL CONTINUE TO MONITOR
[2022-09-23] MEDS: BLOOD SUGAR DIAGNOSTIC 1 EACH STRIP IN SCH ×2 (19:51→21:39)
[2022-09-23] MEDS ORDERED: SODIUM POLYSTYRENE SULFONATE 15 G/60 ML BOTTLE ONE (19:54)
[2022-09-23 20:00] VITALS: BP 145/64
[2022-09-23] MEDS: ENOXAPARIN SODIUM 30 MG/0.3 ML DISP.SYRIN SQ SCH (20:32)
[2022-09-23] MEDS: INSULIN REGULAR, HUMAN 100 UNIT/ML 3 ML VIAL SQ PRN (22:19)
--- NOTE | 2022-09-23 22:29 | NUR ---
RN NOTES PATIENT 2D ECHO CANCELLED BECAUSE PATIENT HAD 2D ECHO ONE MONTH AGO. DR. HAYNES MADE AWARE. WILL CONTINUE TO MONITOR
[2022-09-24] MEDS: IV NS 0.9% 1,000 ML IV PRN (04:40)
[2022-09-24] MEDS: MORPHINE SULFATE INJ 2 MG/ML DISP.SYRIN IV PRN ×2 (04:45→21:17)
[2022-09-24 06:15] LABS: CALCIUM, SERUM 7.7 mg/dL (8.5-10.1); CARBON DIOXIDE 22 mmol/L (21-32); CHLORIDE 111 mmol/L (98-107); CREATININE 1.9 mg/dL (0.6-1.3); GLUCOSE 124 mg/dL (74-106); MAGNESIUM 2.7 mg/dL (1.8-2.4); PHOSPHORUS 4.8 mg/dL (2.5-4.9); POTASSIUM 4.6 mmol/L (3.5-5.1); SODIUM SERUM 140 mmol/L (136-145); UREA NITROGEN, BLOOD 37 mg/dL (7-18)
--- NOTE | 2022-09-24 06:30 | NUR ---
RN NOTES RECEIVED CALL FROM LABORATORY HEMOGLOBIN OF 0.6 [address] OF [address]. DR[address] LEVY MADE AWARE WITH ORDERS MADE TO REPEAT H AND H AND CARRIED OUT. WILL CONTINUE TO MONITOR
[2022-09-24] MEDS: BLOOD SUGAR DIAGNOSTIC 1 EACH STRIP IN SCH ×4 (06:31→21:44)
--- NOTE | 2022-09-24 06:43 | NUR ---
RN MS CLOSING NOTES PATIENT IS IN BED, ASLEEP ON MODERATE HIGH BACK REST POSITION. WITH IV ACCESS AT #20G WITH NS1L AT 75ML/HR INFUSING WELL.INCONTINENT USES BED TEIXEIRA FOR NOW ON ROOM AIR SATURATING WELL. NO PAIN OR DISCOMFORT NOTED AT THIS TIME, NO SOB OR DISTRESS NOTED. PM CARE RENDERED, ALL DUE MEDICATIONS GIVEN. KEPT BED ON LOWER LOCKED POSITION, PAIN MANAGEMENT MAINTAINED, ICED PACKED PLACED AT RIGHT SHOULDER,KEPT PATIENT WARM AND COMFORTABLE, NO ACTIVE BLEEDING NOTED, KEPT SIDE RAILS UP X 2 ALL THE TIME, KEPT CALL LIGHT WITHIN AT REACH. SAFETY MEASURES MAINTAINED. WILL ENDORSED TO NEXT SHIFT FOR FLO.
[2022-09-24 07:26] LABS: BASOPHILS % (AUTO) 0.5 % (0.0-2.0); EOSINOPHILS % (AUTO) 2.8 % (0.0-6.0); LYMPHOCYTES # (AUTO) 0.5 K/uL (0.8-4.8); LYMPHOCYTES % (AUTO) 17.6 % (20.0-44.0); MEAN CORPUSCULAR HGB CONC 33 g/dl (31.0-36.0); MEAN CORPUSCULAR VOLUME 86 fL (82-100); MONOCYTES # (AUTO) 0.3 K/uL (0.1-1.30); MONOCYTES % (AUTO) 9.9 % (2.0-12.0); NEUTROPHILS # (AUTO) 1.8 K/uL (1.8-8.9); NEUTROPHILS % (AUTO) 69.2 % (43.0-81.0); PLATELET COUNT (AUTO) 69 K/uL (150-450); RED BLOOD CELL COUNT(AUTO) 2.14 MIL/uL (4.0-5.2); WHITE BLOOD COUNT (AUTO) 2.6 K/uL (4.3-11.0)
[2022-09-24 07:34] LABS: HEMATOCRIT 18 % (33-45)
[2022-09-24] MEDS: PANTOPRAZOLE 40 MG TABLET.DR PO SCH (07:39)
--- NOTE | 2022-09-24 07:45 | NUR ---
RN OPENING NOTES RECEIVED PATIENT AWAKE IN BED. A/O X 4. LAO SPEAKING BUT ABLE TO UNDERSTAND AMHARIC, ON MODERATE HIGH BACK REST POSITION. BREATHING EVENLY AND UNLABORED. WITH IV ACCESS AT LEFT HAND #20G WITH NS 1L AT 75ML/HR INFUSING WELL. NO SOB OR PAIN AT THIS MOMENT. ON ROOM AIR SATURATING WELL. KEPT BED ON LOWER LOCKED POSITION, KEPT SIDE RAILS UP X 2 ALL THE TIME, KEPT CALL LIGHT WITHIN REACH, SAFETY PRECAUTIONS MAINTAIN, WILL CONTINUE TO MONITOR PATIENT.
[2022-09-24 08:00] VITALS: BP 164/70
[2022-09-24] MEDS ORDERED: PANTOPRAZOLE 40 MG TABLET.DR PO SCH (08:30)
[2022-09-24] MEDS ORDERED: GABAPENTIN 300 MG CAPSULE PO PRN (08:30)
[2022-09-24] MEDS: LEVOTHYROXINE SODIUM 75 MCG TABLET PO SCH (08:39)
[2022-09-24 08:43] LABS: IRON, SERUM 27 ug/dl (50-175); TOTAL IRON BINDING CAPACITY 165 ug/dl (250-450)
[2022-09-24 08:57] LABS: CHOLESTEROL 122 mg/dL (<200); FERRITIN 689 ng/mL (8-388); HDL CHOLESTEROL 63 mg/dL (40-60); LDL 50 mg/dL (0-99); THYROID STIMULATING HORMONE 1.006 uIU/mL (0.358-3.74); TRIGLYCERIDES 136 mg/dL (30-150)
[2022-09-24] MEDS ORDERED: EPOE3000 SQ (09:41)
[2022-09-24] MEDS: NIFEDIPINE XL 60 MG TAB.ER.24 PO SCH (09:45)
[2022-09-24] MEDS: hydrALAZINE HCL 50 MG TABLET PO SCH ×3 (09:45→16:29)
[2022-09-24] MEDS: ASPIRIN 81 MG TAB.CHEW PO SCH (09:45)
[2022-09-24] MEDS: LINAGLIPTIN 5 MG TABLET PO SCH (09:45)
--- NOTE | 2022-09-24 10:51 | NUR ---
RN NOTES INFORMED DR.SAM JUAREZ THAT PATIENT HEMOGLOBIN WAS 6.0, ORDERED TO TRANSFUSE 1 PRBC.
[2022-09-24] MEDS: INSULIN REGULAR, HUMAN 100 UNIT/ML 3 ML VIAL SQ PRN ×3 (12:38→21:42)
[2022-09-24 14:36] LABS: EOSINOPHILS % (MANUAL) 2 % (0-4); LYMPHOCYTES % (MANUAL) 16 % (16-48); MONOCYTES % (MANUAL) 5 % (0-11.0); NEUTROPHILS % (MANUAL) 77 (42-76)
[2022-09-24 16:00] VITALS: BP 130/61
[2022-09-24] MEDS: ENOXAPARIN SODIUM 30 MG/0.3 ML DISP.SYRIN SQ SCH (18:00)
--- NOTE | 2022-09-24 18:03 | NUR ---
RN NOTES HOLD LOVENOX BECAUSE PATIENT HGB 6.0 , HEMATOCRIT 18 AND PLATELETS 69.
[2022-09-24] MEDS: ATORVASTATIN 10 MG TABLET PO SCH (18:20)
--- NOTE | 2022-09-24 18:54 | NUR ---
RN CLOSING NOTES PATIENT AWAKE IN BED, ON MODERATE HIGH BACK REST POSITION. WITH IV ACCESS AT #20G WITH NS 1L AT 75ML/HR PATENT AND INFUSING WELL. ON ROOM AIR SATURATING WELL. NO PAIN OR DISCOMFORT NOTED AT THIS TIME, NO SOB OR DISTRESS NOTED. AM CARE RENDERED, ALL DUE MEDICATIONS GIVEN. KEPT BED ON LOWER LOCKED POSITION, PAIN MANAGEMENT MAINTAINED, ICED PACKED PLACED AT RIGHT SHOULDER,KEPT PATIENT WARM AND COMFORTABLE, NO ACTIVE BLEEDING NOTED, KEPT SIDE RAILS UP X 2 ALL THE TIME, KEPT CALL LIGHT WITHIN AT REACH. SAFETY MEASURES MAINTAINED. WILL ENDORSED TO NEXT SHIFT FOR FLO.
--- NOTE | 2022-09-24 19:50 | NUR ---
RN OPENING NOTE RECEIVED PATIENT AWAKE IN BED. PATIENT A/O X 4, TURKS AND [place] ISLANDER SPEAKING BUT ABLE TO UNDERSTAND NORWEGIAN. NO RESPIRATORY DISTRESS, NO SOB, BREATHING EVENLY AND UNLABORED. IV ACCESS TO LEFT HAND #20G WITH NS INFUSING AT 75ML/HR, IV INTACT, AND PATENT. NO C/O DISCOMFORT OR PAIN AT THIS MOMENT. ON ROOM AIR, SATURATING WELL. SAFETY MEASURES MAINTAINED: BED IN LOWEST LOCKED POSITION, SIDE RAILS UP X 2, CALL LIGHT WITHIN REACH. WILL CONTINUE TO MONITOR PATIENT.
[2022-09-24 20:00] VITALS: BP 160/57
--- NOTE | 2022-09-24 21:17 | NUR ---
MS RN NOTE PATIENT REPORTS PAIN TO RIGHT SHOULDER, AND RIGHT HIP. MORPHINE ADMINISTERED TO PT.
[2022-09-24 22:37] VITALS: BP 147/56
--- NOTE | 2022-09-24 22:55 | NUR ---
MS RN NOTE BLOOD TRANSFUSION IS STARTED. PT'S VS WNL: BP: 147/56, P: 80, T: 98.4, O2: 93%, R: 20. PT IS AFEBRILE. WILL CONTINUE TO MONITOR.
[2022-09-24 23:10] VITALS: BP 154/58
--- NOTE | 2022-09-24 23:10 | NUR ---
MS RN NOTE BLOOD TRANSFUSION IS INFUSING. PT'S VS WNL: BP: 154/58, P: 78, T: 98.8, O2: 95%, R: 20. NO ADVERSE REACTIONS, NO ALLERGIC REACTIONS, NO FEVER NOTED AT THIS TIME. WILL CONTINUE TO MONITOR.
[2022-09-24 23:40] VITALS: BP 157/54
--- NOTE | 2022-09-24 23:40 | NUR ---
MS RN NOTE BLOOD TRANSFUSION STILL RUNNING. VITAL SIGNS WNL. NO FEVER, NO ADVERSE REACTIONS OBSERVED. WILL CONTINUE TO MONITOR.
[2022-09-25] VITALS (12 sets, daily range): BP systolic 122–170; BP diastolic 59–91
--- NOTE | 2022-09-25 00:40 | NUR ---
MS RN NOTE BLOOD TRANSFUSION STILL RUNNING. VITAL SIGNS WNL. NO FEVER, NO ADVERSE REACTIONS OBSERVED. WILL CONTINUE TO MONITOR.
--- NOTE | 2022-09-25 02:04 | NUR ---
MS RN NOTE BLOOD TRANSFUSION ENDED. VITAL SIGNS WNL. NO FEVER, NO ALLERGIC REACTIONS OBSERVED. NO SOB, NO RESPIRATORY DISTRESS NOTED DURING BLOOD TRANSFUSION.
[2022-09-25] MEDS: MORPHINE SULFATE INJ 2 MG/ML DISP.SYRIN IV PRN (02:31)
--- NOTE | 2022-09-25 02:31 | NUR ---
MS RN NOTE PATIENT REPORTS PAIN TO RIGHT SHOULDER, AND RIGHT HIP. MORPHINE ADMINISTERED TO PT.
[2022-09-25 05:54] LABS: BASOPHILS % (AUTO) 0.8 % (0.0-2.0); EOSINOPHILS % (AUTO) 3.1 % (0.0-6.0); HEMATOCRIT 21 % (33-45); LYMPHOCYTES # (AUTO) 0.8 K/uL (0.8-4.8); LYMPHOCYTES % (AUTO) 22.6 % (20.0-44.0); MEAN CORPUSCULAR HGB CONC 32 g/dl (31.0-36.0); MEAN CORPUSCULAR VOLUME 87 fL (82-100); MONOCYTES # (AUTO) 0.4 K/uL (0.1-1.30); MONOCYTES % (AUTO) 11.4 % (2.0-12.0); NEUTROPHILS # (AUTO) 2.2 K/uL (1.8-8.9); NEUTROPHILS % (AUTO) 62.1 % (43.0-81.0); PLATELET COUNT (AUTO) 75 K/uL (150-450); RED BLOOD CELL COUNT(AUTO) 2.44 MIL/uL (4.0-5.2); WHITE BLOOD COUNT (AUTO) 3.5 K/uL (4.3-11.0)
[2022-09-25 06:05] LABS: HEMOGLOBIN 6.9 g/dL (11.5-14.8)
[2022-09-25 06:09] LABS: ALANINE AMINOTRANSFERASE 20 U/L (12-78); ALBUMIN 2.6 g/dL (3.4-5.0); ALKALINE PHOSPHATASE 104 U/L (46-116); ASPARTATE AMINOTRANSFERASE 15 U/L (15-37); BILIRUBIN,TOTAL 0.4 mg/dL (0.2-1.0); CALCIUM, SERUM 7.7 mg/dL (8.5-10.1); CARBON DIOXIDE 23 mmol/L (21-32); CHLORIDE 109 mmol/L (98-107); CREATININE 1.7 mg/dL (0.6-1.3); GLUCOSE 125 mg/dL (74-106); MAGNESIUM 2.4 mg/dL (1.8-2.4); POTASSIUM 4.2 mmol/L (3.5-5.1); SODIUM SERUM 141 mmol/L (136-145); TOTAL PROTEIN, SERUM 5.8 g/dL (6.4-8.2); UREA NITROGEN, BLOOD 26 mg/dL (7-18)
--- NOTE | 2022-09-25 06:30 | NUR ---
MS RN OPENING NOTE LEFT PATIENT AWAKE IN BED. PATIENT A/O X 4, YI SPEAKING BUT ABLE TO UNDERSTAND AMHARIC. NO RESPIRATORY DISTRESS, NO SOB, BREATHING EVENLY AND UNLABORED. IV ACCESS TO LEFT HAND #20G WITH NS INFUSING AT 75ML/HR, IV INTACT, AND PATENT. NO C/O DISCOMFORT OR PAIN AT THIS MOMENT. ON ROOM AIR, SATURATING WELL. JASPER FROM LAB CALLED TO INFORM THAT PT'S HGB IS 6.9, AND HTC IS 21. SAFETY MEASURES MAINTAINED: BED IN LOWEST LOCKED POSITION, SIDE RAILS UP X 2, CALL LIGHT WITHIN REACH. WILL ENDORSE PATIENT TO AM SHIFT NURSE FOR FLO.
[2022-09-25] MEDS: BLOOD SUGAR DIAGNOSTIC 1 EACH STRIP IN SCH ×4 (07:05→21:51)
[2022-09-25] MEDS: INSULIN REGULAR, HUMAN 100 UNIT/ML 3 ML VIAL SQ PRN ×3 (07:06→21:54)
[2022-09-25 07:29] LABS: EOSINOPHILS % (MANUAL) 2 % (0-4); LYMPHOCYTES % (MANUAL) 23 % (16-48); MONOCYTES % (MANUAL) 11 % (0-11.0); NEUTROPHILS % (MANUAL) 64 (42-76)
--- NOTE | 2022-09-25 07:45 | NUR ---
UNLOADER Opening Note Received patient on bed, awake, A/O X 4, RA, Chadian speaking. IV access #20 on Left in placed, NS infusing at 75 ml/h, patent. Safety measures in placed, bed low, locked, siderails up x2, call light at reach. Will continue to monitor patient.
[2022-09-25] MEDS: IV NS 0.9% 1,000 ML IV PRN (08:11)
[2022-09-25] MEDS: ASPIRIN 81 MG TAB.CHEW PO SCH (08:50)
[2022-09-25] MEDS: hydrALAZINE HCL 50 MG TABLET PO SCH ×3 (08:51→17:53)
[2022-09-25] MEDS: LINAGLIPTIN 5 MG TABLET PO SCH (08:52)
[2022-09-25] MEDS: NIFEDIPINE XL 60 MG TAB.ER.24 PO SCH (08:52)
--- NOTE | 2022-09-25 09:00 | NUR ---
RN NOTE IV access on Left hand infiltrated. New IV access re -inserted on Left hand #20.
[2022-09-25] MEDS: LEVOTHYROXINE SODIUM 75 MCG TABLET PO SCH (09:02)
[2022-09-25] MEDS: PANTOPRAZOLE 40 MG TABLET.DR PO SCH (09:03)
[2022-09-25] MEDS: ACETAMINOPHEN 325 MG TABLET PO PRN ×2 (09:03→13:43)
[2022-09-25] MEDS: SOD FERRIC GLUC 125 MG in IV NS 0.9% 100 ML IV SCH (13:28)
--- NOTE | 2022-09-25 15:54 | NUR ---
RN NOTE Received order for blood transfusion. Blood picked up at blood bank, no discoloration, no clots, no leakage noted. Verified with 2 RNs. VS prior to transfusion as follows: BP 131/91, HR 99, RR 19, Temp 97.5, SPO2 99% on room air. Blood transfusion started. Will continue to monitor.
--- NOTE | 2022-09-25 16:09 | NUR ---
RN NOTE Patient remains stable with VS as follows: BP 134/59, HR 77, RR 19, Temp 98.1, SPO2 94% on room air. No transfusion reactions noted. Will continue to monitor patient.
--- NOTE | 2022-09-25 17:09 | NUR ---
COAT PRESSER Note VS: BP: 141/72, P: 72, O2: 96% RA, T: 98.2F. Patient is stable, no s/s of reaction noted.
[2022-09-25 17:19] LABS: BILIRUBIN,URINE NEGATIVE (NEGATIVE); COLOR,URINE YELLOW (YELLOW); LEUKOCYTE ESTERASE ,URINE NEGATIVE (NEGATIVE); NITRITE, URINE NEGATIVE (NEGATIVE); PH,URINE 5.5 (5.0-8.0); PROTEIN,URINE TRACE mg/dl (NEGATIVE); UGLUCOSE NEGATIVE (NEGATIVE); UROBILINOGEN,URINE 0.2 EU/dL (0.2)
[2022-09-25] MEDS: ENOXAPARIN SODIUM 30 MG/0.3 ML DISP.SYRIN SQ SCH (17:48)
--- NOTE | 2022-09-25 17:49 | NUR ---
PURCHASING BUYER Note Hold Lovenox due to blood transfusion, Hgb low.
[2022-09-25 17:51] LABS: CREATININE, URINE 72.3 MG/DL (30.0-125.0)
[2022-09-25] MEDS: ATORVASTATIN 10 MG TABLET PO SCH (17:52)
[2022-09-25 18:01] LABS: BACTERIA,URINE None seen /HPF (None Seen); MUCUS,URINE Few /LPF (None Seen); RBC,URINE 0-2 /HPF (0-2); SQUAMOUS EPITHELIAL CELL,UR 0-2 /HPF (None Seen); WBC,URINE 0-2 /HPF (0-3)
--- NOTE | 2022-09-25 18:51 | NUR ---
BONDING EQUIPMENT OPERATOR Note Tyl could give PRN Q4h per MD approval.
--- NOTE | 2022-09-25 18:53 | NUR ---
MENTAL HEALTH AIDE Closing Note Patient on bed, awake, A/O X 4, RA, Faroese speaking. IV access #20 on Left in placed, infusing blood, patent, tolerated, no s/s of reaction noted/infiltration. Safety measures in placed, bed low, locked, side rails up x2, call light at reach. Will endorse next shift nurse to monitor patient.
[2022-09-25] MEDS ORDERED: ACETAMINOPHEN 325 MG TABLET PO PRN ×2 (19:00→20:00)
--- NOTE | 2022-09-25 19:07 | NUR ---
RN NOTE !st unit PRBC transfusion ended. No transfusion reactions noted on 1st PRBC bag. 2nd unit PRBC picked up from blood bank. Verified with 2 RNs, no discoloration, no clots, no leakage noted on blood. VS taken as follow: BP130/90, HR 74, RR 18, Temp 98, SPO2 94% on room air. 2nd bag of PRBC transfusion started. Will continue to monitor.
--- NOTE | 2022-09-25 19:27 | NUR ---
RN NOTE Patient remains stable, no sign of transfusion reactions noted.. VS as follows: BP 134/64, HR 74, RR 18, Temp 98.2, SPO2 94% on room air. Will endorse to assembler 1st shift nurse for FLO.
--- NOTE | 2022-09-25 19:30 | NUR ---
MS JUDY INITIAL NOTES Received report from am nurse and checked patient , she's alert oriented English speaking woman , with blood transfusion still infusing at this time, no adverse reaction noted. Respiration even and non-labored, she have sling on her right arm and per am nurse she have fracture . Pt denies any pain or any discomfort at this time. re-orient her how to used the call light system and at the same time encourage her to use if she needs some help of needs the nurse. Kept her warm and comfortable at all times. Bed in low and lock in position with side rails x2 up . will continue monitoring.
--- NOTE | 2022-09-25 22:03 | NUR ---
MS VP CUSTOMER DEVELOPMENT NOTES Blood sugar checked done 128, no insulin due at this time. no signs of hypo glycemia noted. kept her comfortable at all times. Blood transfusion still infusing. no signs of any adverse reaction noted . will continue monitoring.
--- NOTE | 2022-09-25 22:42 | NUR ---
MS JUDY NOTES Blood transfusion done no adverse reaction noted, vital signs stable. no signs of any distress noted or any discomfort. kept her warm and comfortable at all times. will continue monitoring. place call light at reach.
[2022-09-26 06:11] LABS: ALANINE AMINOTRANSFERASE 19 U/L (12-78); ALBUMIN 2.7 g/dL (3.4-5.0); ALKALINE PHOSPHATASE 114 U/L (46-116); ASPARTATE AMINOTRANSFERASE 33 U/L (15-37); CALCIUM, SERUM 8.2 mg/dL (8.5-10.1); CARBON DIOXIDE 19 mmol/L (21-32); CHLORIDE 110 mmol/L (98-107); CREATININE 1.5 mg/dL (0.6-1.3); GLUCOSE 125 mg/dL (74-106); MAGNESIUM 2.7 mg/dL (1.8-2.4); PHOSPHORUS 4.4 mg/dL (2.5-4.9); POTASSIUM 4.6 mmol/L (3.5-5.1); SODIUM SERUM 141 mmol/L (136-145); TOTAL PROTEIN, SERUM 6.5 g/dL (6.4-8.2); UREA NITROGEN, BLOOD 26 mg/dL (7-18)
--- NOTE | 2022-09-26 07:30 | NUR ---
MS OTHER SALES SUPPORT WORKER CLOSING NOTES PATIENT IS IN BED, ASLEEP ON MODERATE HIGH BACK REST POSITION. WITH IV ACCESS AT #20G WITH NS1L AT 75ML/HR INFUSING. NO PAIN OR DISCOMFORT NOTED AT THIS TIME, NO SOB OR DISTRESS NOTED. PM CARE RENDERED, ALL DUE MEDICATIONS GIVEN. KEPT BED ON LOWER LOCKED POSITION, PAIN MANAGEMENT MAINTAINED, KEPT PATIENT WARM AND COMFORTABLE, NO ACTIVE BLEEDING NOTED, KEPT SIDE RAILS UP X 2 ALL THE TIME, KEPT CALL LIGHT WITHIN AT REACH. SAFETY MEASURES MAINTAINED. WILL ENDORSED TO AM NURSE FOR CONTINUITY OF CARE.
--- NOTE | 2022-09-26 07:39 | NUR ---
RN OPENING NOTE RECEIVED PATIENT AWAKE IN BED. PATIENT A/O X 4, BRAZILIAN SPEAKING BUT ABLE TO UNDERSTAND AND SPEAK LITTLE SWEDISH. NO RESPIRATORY DISTRESS AND NO SOB AT THIS MOMENT, NO COMPLAINT OF PAIN, BREATHING EVENLY AND UNLABORED. IV ACCESS TO LEFT HAND #20G WITH NS INFUSING AT 75ML/HR, IV INTACT, PATENT, AND INFUSING WELL. NO C/O DISCOMFORT OR PAIN AT THIS MOMENT. ON ROOM AIR, SATURATING WELL. SAFETY MEASURES MAINTAINED: BED IN LOWEST LOCKED POSITION, SIDE RAILS UP X 2, CALL LIGHT WITHIN REACH. WILL CONTINUE TO MONITOR PATIENT.
[2022-09-26] MEDS: LEVOTHYROXINE SODIUM 75 MCG TABLET PO SCH (08:04)
[2022-09-26] MEDS: PANTOPRAZOLE 40 MG TABLET.DR PO SCH (08:04)
[2022-09-26 08:05] VITALS: BP 154/59
[2022-09-26] MEDS ORDERED: ERGOCALCIFEROL (VITAMIN D 2) 50,000 UNIT CAPSULE PO SCH (08:30)
[2022-09-26 08:45] LABS: BASOPHILS % (AUTO) 0.7 % (0.0-2.0); EOSINOPHILS % (AUTO) 1.6 % (0.0-6.0); HEMATOCRIT 30 % (33-45); LYMPHOCYTES # (AUTO) 0.7 K/uL (0.8-4.8); LYMPHOCYTES % (AUTO) 12.4 % (20.0-44.0); MEAN CORPUSCULAR HGB CONC 33 g/dl (31.0-36.0); MEAN CORPUSCULAR VOLUME 87 fL (82-100); MONOCYTES # (AUTO) 0.5 K/uL (0.1-1.30); MONOCYTES % (AUTO) 8.2 % (2.0-12.0); NEUTROPHILS # (AUTO) 4.3 K/uL (1.8-8.9); NEUTROPHILS % (AUTO) 77.1 % (43.0-81.0); PLATELET COUNT (AUTO) 85 K/uL (150-450); WHITE BLOOD COUNT (AUTO) 5.5 K/uL (4.3-11.0)
[2022-09-26] MEDS: ASPIRIN 81 MG TAB.CHEW PO SCH (09:47)
[2022-09-26] MEDS: LINAGLIPTIN 5 MG TABLET PO SCH (09:47)
[2022-09-26] MEDS: NIFEDIPINE XL 60 MG TAB.ER.24 PO SCH (09:47)
[2022-09-26] MEDS: hydrALAZINE HCL 50 MG TABLET PO SCH ×3 (09:48→17:23)
[2022-09-26] MEDS: BLOOD SUGAR DIAGNOSTIC 1 EACH STRIP IN SCH ×2 (12:18→17:20)
[2022-09-26] MEDS: INSULIN REGULAR, HUMAN 100 UNIT/ML 3 ML VIAL SQ PRN ×2 (12:19→17:22)
[2022-09-26] MEDS: SOD FERRIC GLUC 125 MG in IV NS 0.9% 100 ML IV SCH (14:15)
[2022-09-26 16:00] VITALS: BP 153/57
[2022-09-26 17:23] VITALS: BP 153/57
[2022-09-26] MEDS: ATORVASTATIN 10 MG TABLET PO SCH (17:38)
[2022-09-26] MEDS: ENOXAPARIN SODIUM 30 MG/0.3 ML DISP.SYRIN SQ SCH (17:39)
--- NOTE | 2022-09-26 18:41 | NUR ---
MS RN CLOSING NOTES PATIENT AWAKE IN BED. ON MODERATE HIGH BACK REST POSITION. WITH IV ACCESS AT #20G WITH NS1L AT 75ML/HR INFUSING. NO PAIN OR DISCOMFORT NOTED AT THIS TIME, NO SOB OR DISTRESS NOTED. FOR DC AT [facility]. AM CARE RENDERED, ALL DUE MEDICATIONS GIVEN. KEPT BED ON LOWER LOCKED POSITION, PAIN MANAGEMENT MAINTAINED, KEPT PATIENT WARM AND COMFORTABLE, NO ACTIVE BLEEDING NOTED, KEPT SIDE RAILS UP X 2 ALL THE TIME, KEPT CALL LIGHT WITHIN REACH. SAFETY MEASURES MAINTAINED. WILL ENDORSED TO THE CATHEAD WORKER NURSE FOR CONTINUITY OF CARE.
--- NOTE | 2022-09-26 20:12 | NUR ---
RN OPENING NOTE RECEIVED PT AWAKE IN BED. A/O X 4, GREENLANDIC SPEAKING BUT CAN UNDERSTAND AND SPEAK SIMPLE [place]. PT IS BALE TO MAKE NEEDS KNOWN. PT IS IN RA, TOLERATING WELL, BREATHING EVEN AND UNLABORED @ THIS TIME. PT IV PRESENT ON LEFT HAND #20G RUNNING NS @ 75MLS/HR, PATENT, INTACT AND FLUSHES WELL. W/ NO S & SX OF INFILTRATION @ SITE NOTED. PT IS ON PURE WICK DRAINING YELLOW COLORED URINE AND DIAPER. PT WILL DISCHARGE TO [facility]. [facility] RECEIVED REPORT FROM NURSE DE JESUS. SAFETY MEASURES IS IN PLACE. BED IN LOWEST AND LOCKED POSITION. SIDE RAILS UP X 2. BEDSIDE TABLE AND CALL LIGHT IS EASY REACH. BED ALARM IS ON. WILL CONTINUE TO MONITOR PT ACCORDINGLY. Addendum: 09/26/22 at 2013 by PEYTON OLIVEIRA RN TIME ERROR, OPENING NOTES @1900.
--- NOTE | 2022-09-26 21:28 | NUR ---
ATOMIC PHYSICS PROFESSOR NOTE PT IS AWAKE AND ALERT X 4, RESPONSIVE AND FOLLOWS VERBAL COMMAND. PT ID BAND AND IV LINE IS OUT. PT DIAPER CHANGED, KEPT CLEAN AND DRY. PT IS ON RA W/ NO S & SX OF RESPIRATORY DISTRESS. PT HAS SLING ON THE RIGHT ARM. PT VITALS SIGN WAS TAKEN PRIOR TO DISCHARGE, STABLE @ BP 146/64, PULSE RATE 84BPM, RESPIRATION RATE 19, TEMPERATURE 98.5 AND O2 SAT OF 92%. PT BELONGINGS WAS ENDORSED AND GIVEN TO THE PT. TRANSFERRED IN A GURNEY BY THE EMT AND TRANSFERRED TO [facility]ON[facility] MARTIN, TEN SETH AND LV PETE.
[2022-09-27] MEDS ORDERED: CLONIDINE HCL 0.3 MG/24H PTWK 1 EA PATCH TD SCH (08:30)
== END 2022-09-26 21:30 | DRG 535 ==
LOC: ER 14:15 → MED 17:53
PROC: 30233N1 Transfusion of Nonautologous Red Blood Cells into Peripheral Vein, Percutaneous Approach (ICD-10-PCS; principal; 2022-09-24)
DX: S32.511A Fracture of superior rim of right pubis, initial encounter for closed fracture (principal); N17.0 Acute kidney failure with tubular necrosis; S42.214A Unspecified nondisplaced fracture of surgical neck of right humerus, initial encounter for closed fracture; D62 Acute posthemorrhagic anemia; W01.0XXA Fall on same level from slipping, tripping and stumbling without subsequent striking against object, initial encounter; Z20.822 Contact with and (suspected) exposure to COVID-19; Y92.009 Unspecified place in unspecified non-institutional (private) residence as the place of occurrence of the external cause; E11.9 Type 2 diabetes mellitus without complications; E78.5 Hyperlipidemia, unspecified; I10 Essential (primary) hypertension; Z79.51 Long term (current) use of inhaled steroids; Z79.82 Long term (current) use of aspirin; Z79.899 Other long term (current) drug therapy; J45.909 Unspecified asthma, uncomplicated; K21.9 Gastro-esophageal reflux disease without esophagitis; M19.90 Unspecified osteoarthritis, unspecified site; E03.9 Hypothyroidism, unspecified; Z79.4 Long term (current) use of insulin; Z79.84 Long term (current) use of oral hypoglycemic drugs; D63.8 Anemia in other chronic diseases classified elsewhere; D50.9 Iron deficiency anemia, unspecified; D69.6 Thrombocytopenia, unspecified; E86.1 Hypovolemia
CPT/HCPCS: 36415; 71045-TC; 72170-TC; 73030-TC; 73502; 73700-TC; 76770-TC; 80048-TC; 80053-TC; 80061-TC; 81001; 82570-TC; 82728-TC; 82962-TC; 83540-TC; 83735-TC; 84100-TC; 84300-TC; 84439-TC; 84443-TC; 84484-TC; 85025-TC; 85730-TC; 86850-TC; 87081-TC; 97110-TC; 97530-TC; A4223; C9803; G0378; J1650; J1815; J1885; J2270; J2916; J7030; J7040; J7050; P9016